=== PATIENT | female | born 1975 | race Caucasian/White ===

== ENCOUNTER → 2017-04-29 | Outpatient (CLI) | payer MEDICARE ==
[~2017-04-29] MED LIST: ACET1TAB82 PO; ADDE30TA PO; ALPR2TAB5 PO; BUSP15TA PO; CALC0.009 TOPICAL; CITA40TA4 PO; ESZO1TAB4 PO; ESZO3TAB4 PO; HUMI40KI SQ; MULTTAB67 PO; QUET1TAB9 PO; RANI150T PO; SUVO1TAB2 PO; VITACAP7 PO; fentaNYL CITRATE 250 MCG/5 ML AMP ONE
[2017-04-29 14:14] LABS: BACTERIA, URINE RARE /hpf; BLOOD, URINE NEG (NEG); GLUCOSE,URINE NEG (NEG); KETONE, URINE NEG (NEG); MUCUS URINE MANY /lpf (OCC); NITRITE,URINE NEG (NEG); PH, URINE 5.5 (5.0-8.5); SQUAMOUS EPITHELIAL CELL URINE 8 /hpf (0-5); URINE COLOR DARK-YELLOW (YELLW/STRAW)
[2017-04-29 14:15] LABS: HEMATOCRIT 36.6 % (35.0-46.0); MEAN CELL VOLUME 75.1 FL (80.0-100.0); MEAN CORPUSCULAR HEMOGLOBIN 23.1 PG (27.0-34.0); MEAN CORPUSCULAR HGB CONC 30.7 % (32.0-36.0); PLATELET COUNT 420 TH/MM3 (150-450); RED BLOOD COUNT 4.88 MIL/MM3 (4.00-5.30); RED CELL DISTRIBUTION WIDTH 18.7 % (11.6-17.2); REVIEW FLAG FINAL; WHITE BLOOD COUNT 6.3 TH/MM3 (4.0-11.0)
[2017-04-29 14:40] LABS: ALT (GPT) 28 U/L (10-53); ANION GAP 7 MEQ/L (5-15); AST (GOT) 24 U/L (15-37); BICARBONATE 26.1 MEQ/L (21.0-32.0); BLOOD UREA NITROGEN 5 MG/DL (7-18); CHLORIDE 109 MEQ/L (98-107); GLOMERULAR FILTRATION RATE 105 ML/MIN (>89); GLUCOSE,FASTING 109 MG/DL (74-99); POTASSIUM 3.7 MEQ/L (3.5-5.1); SODIUM (NA) 142 MEQ/L (136-145)
[2017-04-29 14:43] LABS: ALKALINE PHOSPHATASE 103 U/L (45-117); TOTAL BILIRUBIN ADULT 0.2 MG/DL (0.2-1.0)
== END ==
LOC: CPRE 11:37
PROVIDERS: ATTEND Obstetrics & Gynecology
DX: Z01.812 Encounter for preprocedural laboratory examination (principal); N84.0 Polyp of corpus uteri; N92.4 Excessive bleeding in the premenopausal period; D64.9 Anemia, unspecified
CPT/HCPCS: 36415; 80053; 81001; 85027

== ENCOUNTER → 2017-05-01 | Day surgery (SDC) | payer MEDICARE ==
[~2017-05-01] VITALS: Ht 154.9 cm; Wt 75.3 kg
[~2017-05-01] MED LIST changes: +*RESP: ALBUTEROL 2.5 MG/3 ML NEB (PRN) PERIprocedural Use ONLY NEB ONE; -ACET1TAB82 PO; +ACETAMINOPHEN/HYDROcodone 325 MG/5 MG TAB PO PRN; +CHLORHEXIDINE GLUCONATE 2 % 1 PACK (2 CLOTHS) TOPICAL PRN; +DO NOT ADM ANY ANTICOAGULANT DRUGS PRN; -ESZO1TAB4 PO; -ESZO3TAB4 PO; +FAMOTIDINE 20 MG/2 ML VIAL ONE; -HUMI40KI SQ; +INSULIN HUMAN REGULAR 1,000 UNITS/10 ML VIAL SQ PRN; +KETOROLAC TROMETHAMINE 60 MG/2 ML (IM) VIAL IM ONE; +LACTATED RINGER'S 1000 ML IV PRN; +METOPROLOL TARTRATE 25 MG TAB PO PRN; +ONDANSETRON HCL 4 MG/2 ML VIAL IV PUSH ONE; +ONDANSETRON HCL 4 MG/2 ML VIAL IV PUSH PRN; +OXYTOCIN 10 UNIT/ML AMP ONE; +POVIDONE IODINE 5% (ANTISEPSIS KIT) 4 APPLICATIONS EACH NARE PRN; +PROPOFOL 200 MG/20 ML AMP IV ONE; +SILVER NITR/POTASSIUM NITRATE APPLICATORS ONE; +SODIUM CHLORID 0.9% 500 ML IV PRN; +ePHEDrine/NS 25 MG/5 ML SYR IV ONE; +fentaNYL CITRATE 250 MCG/5 ML AMP IV ONE; -fentaNYL CITRATE 250 MCG/5 ML AMP ONE
[2017-05-01 06:53] VITALS: BP 93/56; PULSE 79; RESP 16; TEMP 97.9; O2SAT 97
--- NOTE | 2017-05-01 09:17 | MP ---
cc: DICK GRACIA DATE OF SURGERY May 01, 2017 PREOPERATIVE DIAGNOSIS Menometrorrhagia. POSTOPERATIVE DIAGNOSES Menometrorrhagia. Possible myoma submucous. PROCEDURE Examination under anesthesia, dilation and curettage of the uterus with a MyoSure and hysteroscopic exam. ANESTHESIA General. SURGEON Kathryn Garcia MD FINDINGS On examination under anesthesia, the vagina was clean. The cervix was clean, without lesions. The uterus was anteverted, anteflexed, slightly enlarged, freely mobile. The adnexa were negative for masses. The hysteroscopic exam revealed a normal uterine cavity. There appeared to be a submucous myoma on the right posterior wall. This was removed completely with the MyoSure device. The uterus sounded to 8 cm. There was no polyp or other abnormality. COUNTS Correct. ESTIMATED BLOOD LOSS Minimal. CONDITION The patient tolerated the procedure well, went to the recovery room in good condition. PROCEDURE IN DETAIL The patient was taken to the operating room, identified by name band and verbally. She was given a general anesthetic, carefully placed in dorsal lithotomy position, prepped and draped in the usual sterile fashion for vaginal surgery. A time-out was taken and the bladder was drained with in and out catheter. A weighted speculum was placed into the vagina, the anterior lip of the cervix was grasped with a single-tooth tenaculum. The cervix was serially dilated without difficulty and the MyoSure hysteroscope was inserted into the endocervical canal and then into the endometrium. The entire endometrium was carefully inspected. Both ostia were clearly seen. There appeared to be a small submucous myoma on the posterior wall which was submucous and this was removed first. Then we proceeded with the MyoSure and cleaned the remainder of the tissue. We got a nice cleaning. This was followed by a sharp curettage to get any remaining endometrium. Once this had been accomplished, the instruments were removed. Bleeding was minimal. She tolerated the procedure well and got Toradol in the operating room theatre. She went to the recovery room in good condition. RMD ERIK EatonV/MARLY /8:54 AM /9:00 AM
[2017-05-01 10:30] VITALS: BP 103/65; PULSE 86; RESP 16; TEMP 97.4; O2SAT 95
== END | disposition home or self-care (01) ==
LOC: HSDC 06:11
PROVIDERS: ATTEND Obstetrics & Gynecology
DX: N92.1 Excessive and frequent menstruation with irregular cycle (principal); N92.4 Excessive bleeding in the premenopausal period; F32.81 Premenstrual dysphoric disorder; D64.9 Anemia, unspecified
CPT/HCPCS: 00860; 58145; 58558; 88305; 94664; J1885; J2405; J3010; J7120; J7613; J2590

== ENCOUNTER → 2017-09-02 | Outpatient (CLI) | payer MEDICARE ==
[~2017-09-02] MED LIST changes: -*RESP: ALBUTEROL 2.5 MG/3 ML NEB (PRN) PERIprocedural Use ONLY NEB ONE; -ACETAMINOPHEN/HYDROcodone 325 MG/5 MG TAB PO PRN; -CHLORHEXIDINE GLUCONATE 2 % 1 PACK (2 CLOTHS) TOPICAL PRN; -DO NOT ADM ANY ANTICOAGULANT DRUGS PRN; -FAMOTIDINE 20 MG/2 ML VIAL ONE; -INSULIN HUMAN REGULAR 1,000 UNITS/10 ML VIAL SQ PRN; -KETOROLAC TROMETHAMINE 60 MG/2 ML (IM) VIAL IM ONE; -LACTATED RINGER'S 1000 ML IV PRN; -METOPROLOL TARTRATE 25 MG TAB PO PRN; -ONDANSETRON HCL 4 MG/2 ML VIAL IV PUSH ONE; -ONDANSETRON HCL 4 MG/2 ML VIAL IV PUSH PRN; -OXYTOCIN 10 UNIT/ML AMP ONE; -POVIDONE IODINE 5% (ANTISEPSIS KIT) 4 APPLICATIONS EACH NARE PRN; -PROPOFOL 200 MG/20 ML AMP IV ONE; -SILVER NITR/POTASSIUM NITRATE APPLICATORS ONE; -SODIUM CHLORID 0.9% 500 ML IV PRN; -ePHEDrine/NS 25 MG/5 ML SYR IV ONE; -fentaNYL CITRATE 250 MCG/5 ML AMP IV ONE
[2017-09-02 14:37] LABS: AUTOMATED NEUTROPHIL # 4.4 TH/MM3 (1.8-7.7); BASOPHIL # 0.1 TH/MM3 (0-0.2); BASOPHIL % 0.9 % (0.0-2.0); EOSINOPHIL # 0.2 TH/MM3 (0-0.4); EOSINOPHIL % 2.4 % (0.0-4.0); HEMATOCRIT 32.8 % (35.0-46.0); HEMO FLAGS DIFF FINAL; LYMPH % 28.7 % (9.0-44.0); LYMPHOCYTE # 2.1 TH/MM3 (1.0-4.8); MEAN CORPUSCULAR HEMOGLOBIN 25.8 PG (27.0-34.0); MEAN CORPUSCULAR HGB CONC 32.2 % (32.0-36.0); MONO % 8.2 % (0.0-8.0); NEUT % 59.8 % (16.0-70.0); PLATELET COUNT 488 TH/MM3 (150-450); RED CELL DISTRIBUTION WIDTH 16.5 % (11.6-17.2); WHITE BLOOD COUNT 7.4 TH/MM3 (4.0-11.0)
[2017-09-02 15:23] LABS: BICARBONATE 24.8 MEQ/L (21.0-32.0); POTASSIUM 3.9 MEQ/L (3.5-5.1)
== END ==
LOC: CPRE 13:14
PROVIDERS: ATTEND Obstetrics & Gynecology
DX: Z01.812 Encounter for preprocedural laboratory examination (principal); F32.81 Premenstrual dysphoric disorder
CPT/HCPCS: 36415; 80048; 85025

== ENCOUNTER 2017-09-11 11:03 | Observation (INO) | payer MEDICARE ==
[~2017-09-11] VITALS: Ht 154.9 cm; Wt 71.4 kg
[~2017-09-11 11:03] MED LIST changes: -RANI150T PO
[2017-09-11] MEDS ORDERED: LACTATED RINGER'S 1000 ML INJ 2,000 ML IV ONE (12:00)
[2017-09-11] MEDS ORDERED: LIDOCAINE HCL 1% PF 5 ML AMPULE OTHER ONE (12:00)
[2017-09-11] MEDS ORDERED: PROPOFOL 200 MG/20 ML AMP IV ONE (12:00)
[2017-09-11] MEDS ORDERED: ROCURONIUM INJ 50 MG/5 ML SYRINGE IV PUSH ONE (12:00)
[2017-09-11] MEDS ORDERED: ePHEDrine/NS 25 MG/5 ML SYR IV ONE (12:00)
[2017-09-11] MEDS ORDERED: SODIUM CHLORIDE 0.9% 20 ML VIAL IV ONE (12:00)
[2017-09-11] MEDS ORDERED: ONDANSETRON HCL 4 MG/2 ML VIAL IV PUSH ONE (12:00)
[2017-09-11] MEDS ORDERED: NEOSTIGMINE 3 MG/3 ML SYR IV ONE (12:00)
[2017-09-11] MEDS ORDERED: GLYCOPYRROLATE 1 MG/5 ML SYRINGE IV PUSH ONE (12:00)
[2017-09-11] MEDS ORDERED: MIDAZOLAM HCL 2 MG/2 ML VIAL IV ONE (12:00)
[2017-09-11] MEDS ORDERED: MORPHINE SULFATE 4 MG/ML INJ IV ONE (12:00)
[2017-09-11 12:42] LABS: BILIRUBIN, URINE NEG (NEG); BLOOD, URINE NEG (NEG); GLUCOSE,URINE NEG (NEG); KETONE, URINE NEG (NEG); MUCUS URINE FEW /lpf (OCC); NITRITE,URINE NEG (NEG); PH, URINE 5.5 (5.0-8.5); SQUAMOUS EPITHELIAL CELL URINE 3 /hpf (0-5); URINE COLOR YELLOW (YELLW/STRAW); URINE LEUKOCYTE ESTERASE NEG (NEG)
[2017-09-11] MEDS ORDERED: INSULIN HUMAN REGULAR 1,000 UNITS/10 ML VIAL SQ PRN (13:00)
[2017-09-11] MEDS ORDERED: LACTATED RINGER'S 1000 ML IV PRN (13:00)
[2017-09-11] MEDS ORDERED: CHLORHEXIDINE GLUCONATE 2 % 1 PACK (2 CLOTHS) TOPICAL PRN (13:00)
[2017-09-11] MEDS ORDERED: METOPROLOL TARTRATE 25 MG TAB PO PRN (13:00)
[2017-09-11] MEDS ORDERED: POVIDONE IODINE 5% (ANTISEPSIS KIT) 4 APPLICATIONS EACH NARE PRN (13:00)
[2017-09-11] MEDS ORDERED: SODIUM CHLORID 0.9% 500 ML IV PRN (13:00)
[2017-09-11] MEDS ORDERED: ceFAZolin 1,000 MG/NS 100 ML IV SCH ×2 (13:00)
[2017-09-11] MEDS ORDERED: LORazepam 2 MG/ML VIAL IV ONE (17:00)
[2017-09-11] MEDS ORDERED: HYDROmorphone HCL PF 1 MG/ML VIAL IVP PRN (19:45)
[2017-09-11] MEDS ORDERED: SODIUM CHLORIDE 0.9% FLUSH 10 ML FLUSH IV FLUSH PRN (19:45)
[2017-09-11] MEDS ORDERED: diphenhydrAMINE HCL 25 MG CAP PO PRN (19:45)
[2017-09-11] MEDS ORDERED: ONDANSETRON HCL 4 MG/2 ML VIAL IVP PRN (19:45)
[2017-09-11] MEDS ORDERED: oxyCODONE/ACETAMINOPHEN 5 MG/325 MG TAB PO PRN (19:45)
[2017-09-11] MEDS ORDERED: IBUPROFEN 600 MG TAB PO PRN (19:45)
[2017-09-11] MEDS ORDERED: PROMETHAZINE INJ 25 MG/ML VIAL IM PRN (19:45)
[2017-09-11] MEDS: LACTATED RINGER'S 1000 ML INJ 1,000 ML IV SCH (19:50)
[2017-09-11] MEDS ORDERED: DO NOT ADM ANY ANTICOAGULANT DRUGS PRN (19:50)
[2017-09-11] MEDS ORDERED: *morphine SULFATE 8 MG/ML PERIprocedure ONLY ONE (20:34)
[2017-09-11] MEDS ORDERED: ALPRAZOLAM 2 MG PO SCH (21:00)
[2017-09-11] MEDS ORDERED: SODIUM CHLORIDE 0.9% FLUSH 10 ML FLUSH IV FLUSH SCH (21:00)
[2017-09-11] MEDS ORDERED: QUEtiapine FUMARATE 200 MG TAB PO SCH (21:00)
[2017-09-11 22:00] VITALS: BP 129/96; PULSE 71; RESP 20; TEMP 97.9; O2SAT 99
[2017-09-11] MEDS: DOCUSATE SODIUM 100 MG CAP PO SCH (22:06)
[2017-09-11] MEDS: oxyCODONE/ACETAMINOPHEN 5 MG/325 MG TAB PO PRN (22:07)
[2017-09-12] MEDS: ALPRAZolam 0.5 MG TAB PO SCH ×4 (01:31→10:48)
[2017-09-12] MEDS: oxyCODONE/ACETAMINOPHEN 5 MG/325 MG TAB PO PRN ×3 (02:24→10:48)
[2017-09-12 02:30] VITALS: BP 109/63; PULSE 91; RESP 18; TEMP 98.3; O2SAT 99
[2017-09-12] MEDS: LACTATED RINGER'S 1000 ML INJ 1,000 ML IV SCH ×2 (03:09→08:16)
[2017-09-12 06:01] LABS: BASOPHIL # 0.1 TH/MM3 (0-0.2); BASOPHIL % 0.4 % (0.0-2.0); EOSINOPHIL # 0.1 TH/MM3 (0-0.4); EOSINOPHIL % 0.8 % (0.0-4.0); HEMATOCRIT 30.1 % (35.0-46.0); HEMOGLOBIN 9.5 GM/DL (11.6-15.3); LYMPHOCYTE # 2.4 TH/MM3 (1.0-4.8); MEAN CELL VOLUME 78.1 FL (80.0-100.0); MEAN CORPUSCULAR HEMOGLOBIN 24.5 PG (27.0-34.0); MEAN CORPUSCULAR HGB CONC 31.4 % (32.0-36.0); MEAN PLATELET VOLUME 6.4 FL (7.0-11.0); MONO % 7.1 % (0.0-8.0); NEUT % 73.7 % (16.0-70.0); PLATELET COUNT 473 TH/MM3 (150-450); RED BLOOD COUNT 3.86 MIL/MM3 (4.00-5.30); RED CELL DISTRIBUTION WIDTH 17.8 % (11.6-17.2); WHITE BLOOD COUNT 13.6 TH/MM3 (4.0-11.0)
[2017-09-12 06:15] VITALS: BP 97/54; PULSE 70; RESP 18; TEMP 98.6; O2SAT 98
[2017-09-12 06:22] LABS: BICARBONATE 25.2 MEQ/L (21.0-32.0); CALCIUM 8.2 MG/DL (8.5-10.1); CREATININE 0.51 MG/DL (0.50-1.00)
--- NOTE | 2017-09-12 08:04 | HHI.PR ---
Subjective Remarks Doing well, pain is well controlled, eating well. Objective Vital Signs Vital Signs Date Time Temp Pulse Resp B/P (MAP) Pulse Ox O2 Delivery O2 Flow Rate FiO2 09/12/17 06:15 98.6 70 18 97/54 (68) 98 09/12/17 03:24 18 09/12/17 02:30 98.3 91 18 109/63 (78) 99 09/11/17 22:00 97.9 71 20 129/96 (107) 99 09/11/17 20:45 66 16 146/70 (95) 100 Nasal Cannula 2 09/11/17 20:30 63 16 134/80 (98) 100 Nasal Cannula 2 09/11/17 20:15 84 16 120/74 (89) 100 Nasal Cannula 2 09/11/17 20:00 88 18 111/68 (82) 99 Nasal Cannula 2 09/11/17 19:50 97.5 74 20 129/64 (85) 99 Nasal Cannula 2 09/11/17 11:45 97.1 72 18 100/55 (70) 97 I/O 09/11/17 09/11/17 09/11/17 09/12/17 09/12/17 09/12/17 07:00 15:00 23:00 07:00 15:00 23:00 Intake Total 2600 ml Output Total 2100 ml 1900 ml Balance 500 ml -1900 ml Intake Other 2600 ml Output Urine Total 2050 ml 1900 ml Estimated Blood Loss 50 ml Result Diagram: 09/12/17 0527 09/12/17 0527 Objective Remarks Chest is clear, regular rate and rhythm. Abdomen is soft and non-distended. Incision is clean and dry. Ext no CCE. A/P Assessment and Plan Post Op Day 1 Anemia blood count started low will start fe after narcotics are done Smoker discussed chantix and the patch will defer to Dr Meek S/P BSO Start climera now Doing well Home today and return to office in two weeks. Kathryn Garcia MD Sep 12, 2017 08:03
[2017-09-12] MEDS: DOCUSATE SODIUM 100 MG CAP PO SCH (08:14)
[2017-09-12] MEDS ORDERED: CITALOPRAM HYDROBROMIDE 40 MG TAB PO SCH (09:00)
[2017-09-12] MEDS ORDERED: busPIRone HCL 5 MG TAB PO SCH (09:00)
[2017-09-12] MEDS ORDERED: INFLUENZA VIRUS VACCINE (QUADRIVALENT) 0.5 ML SYR IM ONE (09:00)
--- NOTE | 2017-09-12 09:08 | HHI.DCPOC ---
Discharge Care Plan Diagnosis: (1) Dysmenorrhea, unspecified (2) H/O hysterectomy for benign disease (3) Bipolar 1 disorder Report Symptoms to Your Doctor -Temperature above 100.5 degrees -Redness, of incision or excessive or foul smelling drainage -Unusual pain or calf pain -Increased vaginal bleeding -Painful or difficulty urinating -Feelings of extreme sadness or anxiety after 2 weeks Goals to Promote Your Health * To prevent worsening of your condition and complications * To maintain your health at the optimal level Directions to Meet Your Goals Take your medications as prescribed Follow your dietary instruction Follow activity as directed Ensure plenty of rest for recovery Drink fluids for hydration Keep your appointments as scheduled Take your immunizations and boosters as scheduled If your symptoms worsen call your PCP, if no PCP go to Urgent Care Center or Emergency Room Smoking is Dangerous to Your Health. Avoid second hand smoke Call the 24-hour crisis hotline for domestic abuse at Kathryn Garcia MD Sep 12, 2017 09:08
[2017-09-12] MEDS ORDERED: ESTRADIOL 0.1 MG/24 HR PATCH T-DERMAL ONE (11:00)
--- NOTE | 2017-09-12 11:12 | MP ---
cc: Kathryn GARCIA MD DATE OF SURGERY: 09/11/2017 PREOPERATIVE DIAGNOSIS 1. Abnormal uterine bleeding. 2. Severe dysmenorrhea. 3. PMDD exacerbating her bipolar disease. POSTOPERATIVE DIAGNOSIS 1. Abnormal uterine bleeding. 2. Severe dysmenorrhea. 3. PMDD exacerbating her bipolar disease. PROCEDURE LASH and a BSO. SURGEON Kathryn Garcia MD FINDINGS A normal uterus, fallopian tubes had been dissected bilaterally. The ovaries were normal. Posterior and anterior cul-de-sac were normal. COMPLICATIONS None. COUNTS Counts were correct. ESTIMATED BLOOD LOSS Estimated blood loss was 50 ccs. FLUIDS Crystalloids. CONDITION The patient tolerated the procedure well and went to the recovery room in good condition. INDICATIONS FOR PROCEDURE This is a 42-year-old female who was having severe pain with her periods. Her periods were coming irregularly. We had attempted a D&C prior to this, she declined endometrial ablation and elected for a hysterectomy. She also asked about having her ovaries removed. I did contact her psychiatrist, Dr. Chuy Meek, who thought that her PMDD was exacerbating her bipolar disease. Therefore, we decided to do a BSO as well. PROCEDURE IN DETAIL: The patient was taken to the operating room, identified by name band and verbally, She was given a general anesthetic, intubated, prepped and draped for laparoscopic surgery using the Priyank stirrups. Great care was taken in positioning the legs to avoid any kind of nerve damage. Examination under anesthesia was carried out. A weighted speculum was placed in the vagina. The anterior lip of the cervix was grasped with a single-tooth tenaculum. A Hulka clamp was placed. Attention was turned to the umbilical area, a small incision was made and the Veress needle was used to create a pneumoperitoneum with three liters of CO2. A 5 mm trocar was placed in this area and the 5 mm laparoscope. To the left of the umbilicus a 10 mm scope was placed for the future use of the morcellator and another on the right side with a 5 mm third puncture. At this time using the uterine manipulator the infundibulopelvic ligaments were taken down with the Harmonic scalpel without difficulty. The round ligaments were taken down. The bladder flap was created. There was quite a bit of scarring from her previous sections. We took down the peritoneum off the lower uterine segment, lifted it and used hydrodissection to take the bladder down out of harm's away, away from the operative site. At this point the uterine vessels were skeletonized and the uterine vessels were taken with the Ligature at the level of the internal cervical os. At this point the uterus blanched out nicely and the cervix was amputated at this time at that level without difficulty using the Ligature and scissors. The Hulka clamp had to be removed before transecting the cervix. Once this had occurred a sponge stick was placed in the vagina to manipulate the cervical stump. The cervical stump was manipulated and cauterized with the bipolar forceps. At this point hemostasis was excellent. All the pedicles were dry and the pelvis was irrigated with some fluid. The uterus, tubes and ovaries were then removed using the morcellator with excellent results. Again, the pelvis was irrigated with a large amount of fluid and all pedicles were again inspected and were dry. The laparoscope was removed under direct vision from the 10 mm port and the fascia was repaired with 2-0 Vicryl single stitch. The skin was repaired with a subcuticular stitch with excellent results. She tolerated the procedure well and went to the recovery room in good condition. R. MD NATACHA Armstrong/ALPHONSE /7:32 PM /10:44 AM
[2017-09-12] MEDS ORDERED: ZOLPIDEM TARTRATE 5 MG TAB PO SCH (21:00)
== END 2017-09-12 10:59 | disposition home or self-care (01) ==
LOC: HSDC 11:03 → HSDI 19:45 → H1EA 21:00
PROVIDERS: ADMIT Obstetrics & Gynecology; ATTEND Obstetrics & Gynecology
DX: N80.0 Endometriosis of uterus (principal); N83.8 Other noninflammatory disorders of ovary, fallopian tube and broad ligament; N83.01 Follicular cyst of right ovary; N83.02 Follicular cyst of left ovary; N94.6 Dysmenorrhea, unspecified; D64.9 Anemia, unspecified; F32.81 Premenstrual dysphoric disorder; F41.9 Anxiety disorder, unspecified; F31.9 Bipolar disorder, unspecified; F17.200 Nicotine dependence, unspecified, uncomplicated
CPT/HCPCS: 00840; 58542; 80048; 81001; 85025; 86850; 86900; 86901; 88307; 96360; 96361; C1765; G0378; J2250; J2270; J2405; J2710; J3010; J7120